=== PATIENT | female | born 2000 | race American Indian/Alaskan Native ===

== ENCOUNTER 2020-01-04 21:30 | Emergency (ER) | payer MEDICAID, OTHER ==
[2020-01-04 22:00] VITALS: BP 128/78
[2020-01-04] MEDS ORDERED: predniSONE 20 MG TAB PO ONE (22:31)
[2020-01-04] MEDS ORDERED: ALBUTEROL 2.5 MG/3 ML NEBU IH ONE (22:31)
--- NOTE | 2020-01-04 23:16 | XRay Report ---
CHEST 1 VIEW INDICATION: dyspnea. COMPARISON: None. FINDINGS: Support devices: None. Heart: Within normal limits. Lungs/Pleura: No acute air space or interstitial disease. Additional findings: None. IMPRESSION: No acute abnormality. Signer Name: Donaldo Simental MD Signed: 01/04/2020 11:12 PM Workstation Name: [id number]
--- NOTE | 2020-01-04 23:38 | Emergency Department Report ---
ED General Adult HPI - General Chief complaint: Medical Clearance Stated complaint: DIFFICULTY IN BREATHING Source: patient Mode of arrival: Ambulatory Limitations: No Limitations - History of Present Illness Initial comments: Patient is a 19-year-old -[place] female with no past medical history who presents to the ED with complaint of acute onset shortness of breath after she got exposed to the gas leakage at home about 12 hours ago. Patient states that she immediately felt short of breath, wheezing, chest tightness but was relieved when she got out of the house. Patient denies chest pain, dizziness, syncope, fever, chills, nausea and vomiting, diarrhea, sore throat, nasal and sinus congestion, headache or back pain MD Complaint: dyspnea, exposed gas leaks at home -: Sudden, hour(s) (12) Location: chest Radiation: non-radiation Quality: dull Consistency: intermittent Improves with: none Worsens with: none Associated Symptoms: denies other symptoms, cough, shortness of breath. denies: confusion, chest pain, diaphoresis, fever/chills, headaches, loss of appetite, malaise, nausea/vomiting Treatments Prior to Arrival: none - Related Data Previous Rx's Medication Instructions Recorded Last Taken Type Albuterol Sulfate [Proventil Hfa] 1 - 2 puff IH Q6H PRN #1 hfa.[email or web address] 01/04/20 Unknown Rx Allergies Allergy/AdvReac Type Severity Reaction Status Date / Time No Known Allergies Allergy Unverified 01/04/20 22:09 ED Review of Systems ROS: Stated complaint: DIFFICULTY IN BREATHING Other details as noted in HPI Constitutional: denies: chills, fever Eyes: denies: eye pain, eye discharge, vision change ENT: denies: ear pain, throat pain Respiratory: cough, shortness of breath, wheezing Cardiovascular: denies: chest pain, palpitations Endocrine: no symptoms reported Gastrointestinal: denies: abdominal pain, nausea, vomiting, diarrhea Genitourinary: denies: urgency, dysuria, discharge Musculoskeletal: denies: back pain, joint swelling, arthralgia Skin: denies: rash, lesions Neurological: denies: headache, weakness, paresthesias Psychiatric: denies: anxiety, depression Hematological/Lymphatic: denies: easy bleeding, easy bruising ED Past Medical Hx - Past Medical History Previous Medical History?: Yes Hx Asthma: Yes - Surgical History Past Surgical History?: No - Social History Smoking Status: Never Smoker Substance Use Type: None - Medications Home Medications: Home Medications Medication Instructions Recorded Confirmed Last Taken Type Albuterol Sulfate [Proventil Hfa] 1 - 2 puff IH Q6H PRN #1 hfa.aer.ad 01/04/20 Unknown Rx ED Physical Exam - General Limitations: No Limitations General appearance: alert, in no apparent distress - Head Head exam: Present: atraumatic, normocephalic, normal inspection - Eye Eye exam: Present: normal appearance, PERRL, EOMI Pupils: Present: normal accommodation - ENT ENT exam: Present: normal exam, normal orophraynx, mucous membranes moist, TM's normal bilaterally, normal external ear exam - Neck Neck exam: Present: normal inspection, full ROM - Respiratory Respiratory exam: Present: normal lung sounds bilaterally, wheezes (mildly dif fuse wheezes). Absent: respiratory distress, rales, chest wall tenderness, accessory muscle use, decreased breath sounds, prolonged expiratory - Cardiovascular Cardiovascular Exam: Present: regular rate, normal rhythm, normal heart sounds. Absent: systolic murmur, diastolic murmur, rubs, gallop - GI/Abdominal GI/Abdominal exam: Present: soft, normal bowel sounds. Absent: tenderness, guarding, rebound, hyperactive bowel sounds, hypoactive bowel sounds - Extremities Exam Extremities exam: Present: normal inspection, full ROM, normal capillary refill - Back Exam Back exam: Present: normal inspection, full ROM. Absent: tenderness, CVA t enderness (R), CVA tenderness (L), muscle spasm, paraspinal tenderness - Neurological Exam Neurological exam: Present: alert, oriented X3, CN II-XII intact, normal gait, reflexes normal - Psychiatric Psychiatric exam: Present: normal affect, normal mood - Skin Skin exam: Present: warm, dry, intact, normal color. Absent: rash ED Course Vital Signs 01/04/20 21:56 Temperature 98.0 F Pulse Rate 87 Respiratory 18 Rate Blood Pressure 128/78 O2 Sat by Pulse 98 Oximetry ED Medical Decision Making - Radiology Data Radiology results: report reviewed, image reviewed Findings [facility] [address] [place] [address] XRay Report Signed Patient: ISREAL HARMAN MR#: [id number] : 2000 Acct:[id number] Age/Sex: 19 / F ADM Date: 01/04/20 Loc: ED Attending Dr: Ordering Physician: KARRI HERRERA Date of Service: 01/04/20 Procedure(s): XR chest 1V ap Accession Number(s): [id number] cc: KARRI HERRERA Fluoro Time In Minutes: CHEST 1 VIEW INDICATION: dyspnea. COMPARISON: None. FINDINGS: Support devices: None. Heart: Within normal limits. Lungs/Pleura: No acute air space or interstitial disease. Additional findings: None. IMPRESSION: No acute abnormality. Signer Name: Donaldo Simental MD Signed: 01/04/2020 11:12 PM Workstation Name: [id number] Transcribed By: ES Dictated By: Donaldo Simental MD Electronically Authenticated By: Donaldo Simental MD Signed Date/Time: 01/04/202311 DD/ 10 TD/TT: - Medical Decision Making This is a 19-year-old -[place] female with no past medical history who presents to the ED with complaint of acute onset shortness of breath after she got exposed to the gas leakage at home about 12 hours ago. Patient states that she immediately felt short of breath, wheezing, chest tightness but was relieved when she got out of the house. In the ED, patient is alert and oriented x3 and is not in distress. Chest x-ray shows no acute cardiopulmonary abnormalities or pneumonitis. Patient was treated in the ED with albuterol nebulizer and also given oral steroids. On reevaluation, patient felt better and was discharged home on albuterol inhaler. Patient was advised to return to the ED immediately if symptoms get worse, otherwise follow-up with her primary care physician in 3 to 5 days for reevaluation. - Differential Diagnosis dyspnea; bronchitis; URI; anxiety Critical care attestation.: If time is entered above; I have spent that time in minutes in the direct care of this critically ill patient, excluding procedure time. ED Disposition Clinical Impression: Shortness of breath, Exposure to gaseous substance Disposition: DC- TO HOME OR SELFCARE Is pt being admited?: No Does the pt Need Aspirin: No Condition: Stable Instructions: Dyspnea (ED) Additional Instructions: Take medication with food, drink plenty fluids and follow-up with your primary care physician in 7 to 10 days for reevaluation. Return to the ED immediately if symptoms get worse. Prescriptions: Albuterol Sulfate [Proventil Hfa] 1 - 2 puff IH Q6H PRN #1 hfa.aer.ad PRN Reason: Wheezing Referrals: [facility] [Provider Group] - 3-5 Days Time of Disposition: 23:40 Print Language: AFGHAN
== END 2020-01-05 00:10 | disposition home or self-care (01) ==
LOC: ED 21:30
DX: R06.02 Shortness of breath (principal); R06.2 Wheezing; R07.89 Other chest pain; J45.909 Unspecified asthma, uncomplicated; Z77.110 Contact with and (suspected) exposure to air pollution
CPT/HCPCS: 71045; 94640; 99283; J7512